=== PATIENT | female | born 1955 | race Caucasian/White ===

== ENCOUNTER → 2023-03-09 13:04 | Outpatient (REF) | payer OTHER, SELFPAY | LOC: DHCBS MAIN 13:04 | PROVIDERS: ATTENDING PHYSICIAN Internal Medicine Cardiovascular Disease; FAMILY PHYSICIAN Internal Medicine | DX: I42.8 Other cardiomyopathies (principal) | CPT/HCPCS: 93306 ==

== ENCOUNTER → 2023-06-12 14:44 | Outpatient (REF) | payer OTHER, SELFPAY | LOC: RAD 14:44 | PROVIDERS: ATTENDING PHYSICIAN Internal Medicine | DX: I50.21 Acute systolic (congestive) heart failure (principal); E11.9 Type 2 diabetes mellitus without complications; M79.605 Pain in left leg | CPT/HCPCS: 93922; 93925 ==

== ENCOUNTER → 2023-08-14 12:17 | Outpatient (REF) | payer OTHER, SELFPAY | LOC: WDC 12:17 | PROVIDERS: ATTENDING PHYSICIAN Obstetrics & Gynecology Gynecology; FAMILY PHYSICIAN Internal Medicine | DX: Z12.31 Encounter for screening mammogram for malignant neoplasm of breast (principal) | CPT/HCPCS: 77063; 77067 ==

== ENCOUNTER → 2024-04-18 07:28 | Outpatient (REF) | payer OTHER, SELFPAY | LOC: DHSLP 07:28 | PROVIDERS: ATTENDING PHYSICIAN Internal Medicine Critical Care Medicine | DX: G47.33 Obstructive sleep apnea (adult) (pediatric) (principal); R09.02 Hypoxemia | CPT/HCPCS: 95806 ==

== ENCOUNTER 2024-07-17 20:22 | Inpatient (IN) | payer OTHER, SELFPAY ==
[2024-07-17 17:48] VITALS: BP 138/97
--- NOTE | 2024-07-17 18:14 | ED.GENMED ---
History of Present Illness
General
Chief Complaint: Rectal Bleeding
Source: patient
Exam Limitations: none
Time Seen by Provider: 07/17/24 18:12
History of Present Illness
History of Present Illness:
69yoF with a history of CHF and obesity presenting for evaluation of rectal bleeding. Patient had a bowel movement yesterday and passed a large amount of blood clots. She has been having bleeding every time she wipes since then. She was seen by
her PCP today and was sent to the ED for evaluation. Patient is otherwise asymptomatic and denies any dizziness, syncope, chest pain, shortness of breath, abdominal pain, rectal pain. She does not take any blood thinners. Last colonoscopy in 2022
showed some polyps and diverticulosis.
Past History
Past History
ED Past Medical History: Psychiatric (Depression)
Social History
Tobacco: Non-smoker
Alcohol: Occasional
Drug: None
Personal: Single
Phy Exam
General Physical Exam
General Presentation: well appearing and no apparent distress
General Skin: warm and dry
General Habitus: normal
General Mental: alert
ENT Exam
ENT Exam: normocephalic
Cardiovascular Exam
Cardiovascular Exam: tachycardia
Pulmonary Exam
Pulmonary Exam: lungs clear, no respiratory distress, no rales, no crackles, no rhonchi and no wheezing
Gastrointestinal Exam
Gastrointestinal Exam: non tender, soft and non distended
Stool: maroon and other (Stool maroon, hemoccult positive)
Neurological Exam
Neurological Exam: alert
[place] Coma Scale
Eye Opening: Spontaneous
Verbal Response: Oriented
Motor Response: Obeys Commands
GCS Total Score: 15
Skin Exam
Skin Exam: normal color and warm/dry
Psychiatric Exam
Psychiatric Exam: normal mood/affect
Sepsis
Sepsis Screening
Sepsis Assessment: Sepsis Ruled Out
Sepsis Screen
Sepsis Screen: Sepsis Ruled Out
Date: 07/17/24
Time: 20:00
Course
Orders/Labs/Results
Orders:
Orders
07/17/24 17:53
Electrocardiogram (*1) Urgent
Reason for Study: Chest Pain
EKG- Treatment ONCE
07/17/24 18:47
Complete Blood Count/With Diff Urgent
Comprehensive Metabolic Panel Urgent
PTT Urgent
Prothrombin Time Urgent
07/17/24 19:50
Admit/Transfer Patient As Directed
Co-Sign Provider:
Level of Care: Inpatient admission
Assign to:: Telemetry
Physician / Group: Geeta
Diagnosis: Rectal bleed
Reason for Telemetry: Other
Other Reason for Telemetry: rectal bleed
Date to Stop Telemetry: 07/19/24
Time to Stop Telemetry: 11:00
Reason for Hospitalization: rectal bleed
Expected length of stay greater than two midnights?: Yes
ELOS- Estimated Length of Stay in days: 2
I certify the patient meets the requirements for IP care: Yes
PRN Pain Medication Management As Directed
May give lesser potent ordered pain med per pt: Yes
preference::
Protocol:: Medication orders for pain may be administered in a
manner that supports deferring to patient preference
when the pt is:
- Requesting an ordered lesser potent pain medication.
Least to most potent pain medications are defined
as: acetaminophen < NSAID < tramadol < opioids
(morphine, oxycodone, hydromorphone).
- Requesting a lesser dose of the same medication IF
ORDERED.
- Requesting a less intrusive route of administration
if both routes are prescribed by the provider (PO <
IV).
07/17/24 19:52
Code Status As Directed
Resuscitation Status: Do not resuscitate
Reached after discussion with pt or family/Healthcare POA: Yes
DNR Bracelet Application ONCE
07/19/24 11:00
DC Protocol for Telemetry ONCE
Abnormal Lab Results
07/17/24
18:47
WBC 13.7 H 10^3/uL
(4.8-10.8)
MCH 31.7 H pg
(27.0-31.0)
Plt Count 446 H 10^3/uL
(130-400)
Abs Immat Gran (auto) 0.3 H 10^3/uL
(0-0.05)
Absolute Neuts (auto) 9.2 H 10^3/uL
(1.4-6.5)
Absolute Monos (auto) 1.1 H 10^3/uL
(0.1-0.6)
Immature Gran % 1.8 H %
(0-0.5)
BUN 23 H mg/dl
(7-17)
Glucose 126 H mg/dl
(70-99)
07/17/24 18:47
07/17/24 18:47
Vital Signs
Initial and Last Documented VS:
Initial Vital Signs
Temp Pulse Resp BP Pulse Ox
98.6 F 127 22 138/97 96
07/17/24 17:48 07/17/24 17:48 07/17/24 17:48 07/17/24 17:48 07/17/24 17:48
Last Documented Vital Signs
Temp Pulse Resp BP Pulse Ox
98.6 F 105 16 138/97 95
07/17/24 17:48 07/17/24 18:45 07/17/24 18:45 07/17/24 17:48 07/17/24 18:45
MDM/Problems Addressed
Differential Diagnosis Includes:
69yoF here with rectal bleeding x 1 day. Denies abd/rectal pain. HR 127 on arrival. BP stable. She is well appearing in no distress. Abdominal exam is benign. Stool is maroon on rectal exam and hemoccult positive. Differential diagnosis includes but
is not limited to: diverticular bleeding, hemorrhoidal bleeding, AVM, malignancy, colitis, anemia
Initial ED plan: Check CBC, CMP, and coags. No indication for imaging given benign exam.
*Pulse Oximetry
Patient hypoxic: no (96%)
*EKG
Interpreted by ED Provider?: Yes
EKG Intrepretation Date: 07/17/24
Heart Rate: 121
Rate: tachycardiac
Rhythm: sinus
[place]: left axis deviation
QRS Pattern: left vent hypertrophy
Ischemia: T-wave inversion (I and AVL, appears similar to last EKG in 2020)
*Critical Care Note
Total Time (30-74mins, 75-104mins- exclusive of procedures): Not Applicable
Update Note
Update Note:
Hemoglobin 13.4 which is within normal limits. Last hemoglobin in the system it was 15.8 in 2020. Heart rate in the 100s range. Patient admitted for further evaluation.
ED Attending Note
-
Portions of this chart may have been created with voice recognition software.� Occasional wrong word or��sound alike� substitutions may have occurred due to the inherent limitations of voice recognition software.
Discharge Plan
Departure
Patient Disposition: Admit
Date of Disposition: 07/17/24
Time of Disposition: 19:21
Presentation/result/management discussed w/ accepting MD/DO: Hospitalist
Discharge Problem:
Rectal bleeding
Prescriptions:
No Action
venlafaxine [Effexor XR] 150 MG capsule,extended release 24hr
150 mg PO DAILY
multivitamin 1 EACH tablet
1 ea PO DAILY
furosemide 40 MG tablet
40 mg PO BID AT 0800,1600 Qty: 180 3RF
aspirin 81 MG tablet,delayed release (DR/EC)
81 mg PO DAILY 0RF
carvedilol 3.125 MG tablet
3.125 mg PO BID Qty: 180 3RF
sacubitril-valsartan [Entresto] 1 TAB tablet
1 tab PO BID Qty: 180 3RF
Referrals:
Ally Ennis MD [Family Provider, Internal Medicine]
Interventions
Interventions:
*Risk Screen - Suicide Last Done: 07/17/24 17:48
*General Assessment Last Done: 07/17/24 17:48
*Neglect/Abuse Screening Last Done: 07/17/24 17:48
XP-Rxsxfv-Ytilybdlwb Assessment Last Done: 07/17/24 18:52
ED- Cardiac Assessment Last Done: 07/17/24 18:52
ED- Pulmonary Assessment Last Done: 07/17/24 18:52
Discharge Date and Time
Print Language: MONGOLIAN
[2024-07-17 18:51] VITALS: BMI 38.0
[2024-07-17 18:54] LABS: % Basophils 0.6 % (0-2); % Eosinophils 0.8 % (0-6); % Immature Granulocytes 1.8 % (0-0.5); % Lymphocytes 21.6 % (20.5-51.1); % Monocytes 8.2 % (1.7-9.3); Absolute Basophils 0.1 10^3/uL (0-0.2); Absolute Eosinophils 0.1 10^3/uL (0-0.7); Absolute Immature Granulocytes 0.3 10^3/uL (0-0.05); Absolute Monocytes 1.1 10^3/uL (0.1-0.6); Absolute Neutrophils 9.2 10^3/uL (1.4-6.5); Hematocrit 38.9 % (37.0-47.0); Hemoglobin 13.4 g/dL (12.0-16.0); Mean Corp Hgb Conc. 34.4 g/dL (33.0-37.0); Mean Corpuscular Hgb 31.7 pg (27.0-31.0); Mean Platelet Volume 9.3 fL (7.4-10.4); Nucleated Red Blood Cells % 0 %; Platelet Count 446 10^3/uL (130-400); Red Blood Cell Count 4.23 10^6/uL (4.20-5.40); Red Cell Dist. Width 13.8 % (11.5-14.5); White Blood Cell Count 13.7 10^3/uL (4.8-10.8)
[2024-07-17 19:04] LABS: INR 1.02; PT 13.9 Sec (11.4-14.6)
[2024-07-17 19:05] LABS: APTT 31.9 Sec (23.4-35.0)
[2024-07-17 19:11] LABS: ALT (SGPT) 21 U/L (0-35); AST (SGOT) 26 U/L (14-36); Albumin 4.4 g/dl (3.5-5.0); Alkaline Phosphatase 101 U/L (38-126); Blood Urea Nitrogen 23 mg/dl (7-17); Calcium 10.1 mg/dl (8.4-10.2); Carbon Dioxide 28 mmol/L (22-30); Chloride 101 mmol/L (98-107); Estimated Creatinine Clearance 59 ml/min; Glucose 126 mg/dl (70-99); Potassium 4.2 mmol/L (3.5-5.1); Sodium 139 mmol/L (135-145); Total Bilirubin 0.5 mg/dl (0.2-1.3); Total Protein 7.8 g/dl (6.3-8.2); eGFR > 60.00
--- NOTE | 2024-07-17 19:37 | HPS.HSE ---
Family Physician
-
Family Physician: Ally Ennis
Chief Complaint
-
rectal bleeding
History of Present Illness
This is a 69-year-old female with past medical history of CHF with preserved EF, obesity, RENETTA, presenting to the emergency department with episode of rectal bleeding.
Patient reported that she started having bloody bowel movement and passing clots 1 day ago. Patient reported that she had 1 episode of bloody bowel movements yesterday morning that had dark blood mixed with clots and some stool. Since then she
has had a bowel movement that was normal. However every time she wipes she notices a streak of bright red blood. She denies any associated pain. She denies recent diarrhea. She reports that she does have intermittent constipation. She takes
aspirin 81 mg daily but denies any oral pain as. She denies frequent NSAID use. She denied feeling dizzy or lightheaded. She denies any fevers or chills. Denies history of GI bleed.
She had a colonoscopy in 2022 which showed diverticulosis and some polyps.
In the Emergency Department she was afebrile, blood pressure was 138/97 2 was tachycardic to 105 and satting 95% on room air. ECG showed sinus tachycardia at rate of 128 otherwise nonischemic.
Hemoglobin 13.4 platelet counts are normal. INR normal. Electrolytes BUN/creatinine were all normal.
Medical History
Past Medical History
Past Medical History: Reports Other
Additional Past Medical History:
Hypertension
CHF with reduced EF
RENETTA
Past Surgical History: Reports Tonsilectomy and Other (LPS-BTL )
Social History
Tobacco: Non-smoker
Alcohol: None
Drug: Former User
Personal: Single
Living: With Family
Family History
Family History: Not pertinent
Allergies / Home Medications
Allergies reflects when Allergies were last updated in [facility].
Home Medications with original date entered in [facility]
Allergy/Medication List:
Allergies
Allergy/AdvReac Type Severity Reaction Status Date / Time
Sulfa (Sulfonamide Allergy Unknown Verified 07/17/24 17:52
Antibiotics)
Home Medications
multivitamin 1 ea PO DAILY Supplement 04/17/20
venlafaxine 150 mg capsule,extended release 24 hr (Effexor XR) 150 mg PO DAILY Depression 04/17/20
aspirin 81 mg tablet,delayed release 81 mg PO DAILY 04/24/20
carvedilol 3.125 mg tablet 3.125 mg PO BID #180 tabs 04/24/20
furosemide 40 mg tablet 40 mg PO BID AT 0800,1600 #180 tabs 04/24/20
sacubitril 24 mg-valsartan 26 mg tablet (Entresto) 1 tab PO BID #180 tabs 04/24/20
Review of Systems
-
Constitutional: Reports No Symptoms
EENT: Reports No Symptoms
Respiratory: Reports No Symptoms
Cardiac: Reports No Symptoms
Abdomen/GI: Reports No Symptoms and Bloody Stools
: Reports No Symptoms
Musculoskeletal: Reports No Symptoms
Skin: Reports No Symptoms
Neurological: Reports No Symptoms
Endocrine: Reports No Symptoms
Hematologic/Lymphatic: Reports No Symptoms
Psych: Reports No Symptoms
Physical Exam
Vital Signs
Vital Signs
Temp Pulse Resp BP Pulse Ox
98.6 F 105 16 138/97 95
07/17/24 17:48 07/17/24 18:45 07/17/24 18:45 07/17/24 17:48 07/17/24 18:45
Physical Exam
General: Well Developed, Well Nourished and No Apparent Distress
HEENT: NormoCephalic, Moist mucous membranes and Atraumatic
Respiratory: Clear
Cardiac: S1/S2 and Regular Rhythm; No Murmur or Rub
GI: Soft, Non Tender, Non Distended and Normal Bowel Sounds; No Organomegaly
Rectal: Deferred by Provider
Musculoskeletal: No Clubbing, No Cyanosis and No Edema
Skin: No Rash
Neuro: Nonfocal/grossly intact
Laboratory Results
-
07/17/24 18:47
07/17/24 18:47
Laboratory Results
PT 13.9 Sec (11.4-14.6) 07/17/24 18:47
INR 1.02 07/17/24:
APTT 31.9 Sec (23.4-35.0) 07/17/24 18:47
Total Bilirubin 0.5 mg/dl (0.2-1.3) 07/17/24:
AST 26 U/L (14-36) 07/17/24:
ALT 21 U/L (0-35) 07/17/24:
Alkaline Phosphatase 101 U/L (38-126) 07/17/24:
Data Reviewed
-
Medical Tests (Nuc Med, Echo, EKG etc): Image Personally Visualized and interpreted
Lab Data: Labs Reviewed by me
Old Records: Reviewed
Impression/Plan
-
IMPRESSION:
69-year-old with 1 day history of rectal bleeding. Had 1 episode of blood bowel movement mixed with clots but none since. However when she wipes she still seeing blood. Examination in the ED revealed internal hemorrhoid. No obvious source of
bleeding noted. She is hemodynamically stable at this time. Hemoglobin is stable.
PLAN:
Lower GI bleed -hemodynamically stable, no acute distress
-Admit to telemetry
-Clear liquid diet for now
-Type and screen, H&H every 8
-Hold intravenous
-Will hold valsartan and Lasix for now
-Continue Coreg
-Hold aspirin
-Antiemetics, no indication for IV fluids at this time
-GI consult in a.m.
DVT prophylaxis with SCDs
CODE STATUS�DNR
[2024-07-17 21:19] VITALS: BP 126/96; BMI 39.5
[2024-07-17 21:58] VITALS: BMI 39.5
[2024-07-17] MEDS: COREG PO (22:11)
--- NOTE | 2024-07-17 22:31 | VATNOTE ---
NOTED ORDER FOR TWO LARGE BORE IVS. PT WITH NORMAL H/H AND NO CURRENT IV THERAPY ORDERED. WILL NOT ESTABLISH A SECOND IV AT THIS TIME.
[2024-07-17 23:40] VITALS: BP 124/81
[2024-07-17 23:41] VITALS: BP 124/81; BP 137/87; BP 143/86; PULSE 100; PULSE 88; PULSE 96
[2024-07-18] VITALS (7 sets, daily range): BP systolic 103–147; BP diastolic 61–80; PULSE 76–103; BMI 39.7
[2024-07-18 02:33] LABS: Hematocrit 35.2 % (37.0-47.0); Hemoglobin 12.3 g/dL (12.0-16.0)
--- NOTE | 2024-07-18 07:24 | CON.GI ---
Addendum entered and electronically signed by Marisol Waller MD 07/18/24 16:51:
I saw and examined the patient.
The [employer]EC[employer]TER [employer] or PA's note was reviewed and I agree with the note.
Comment: 69-year-old female with history of hypertension, obstructive sleep apnea, diverticulosis presenting with complaints of bright blood per rectum starting Sunday, she reports that she is almost 2 months of bright blood on Sunday,
she only saw bright blood when wiping and today again she saw some blood on wiping. No bowel movements since Sunday. Denies any abdominal pain, nausea or vomiting. No heartburn or trouble swallowing. On a regular basis, she has a
bowel movement which is formed except occasional loose stool. Never had GI bleeding like this. No loss of appetite, unintentional weight loss. She does take NSAIDs for joint pains few times a week. No chest pain, shortness of breath, dizziness
or lightheadedness.
Colonoscopy in 2022, diverticulosis noted inflammatory polyp removed from sigmoid colon. Otherwise unremarkable.
On admission, hemoglobin was noted to be 12.3 and now it is 11.9, no significant change.
-Rectal bleeding, likely diverticular. Currently hemodynamically stable.
Agree with monitoring H&H, transfuse if needed.
Would put her back on full liquid diet and if there is no further bleeding, then advance to low residue diet.
If overt active bleeding, consider CT angiogram and if slow bleed, consider colonoscopy.
Will follow-up
Original Note:
Consultation
-
Date/Time Consultation Requested: 07/18/24 0100
Date/Time Consultation Performed: 07/18/24 1020
Requesting Provider: Dk Connor MD
Performing Provider: KIYA Hernández, Marisol Waller MD
Reason for Consultation: rectal bleeding
Medical History
Chief Complaint / HPI
History of Present Illness:
Pt is a 69yo with hx HFpEF, obesity, RENETTA, HTN, depression, pre DM with onset of rectal bleeding passing blood stools with clots. She was seen by PCP and referred to ER. Pt on daily ASA and takes Motrin several times per week but denies other
anticoagulation. No hx GI bleeding in past. Labs on admission with hbg 13.4 with some drop after admission, WBC 13,700, BUN 23 and glucose 126.
In review with patient she admits to regular stools with occasional diarrhea without constipation. She began on Sunday after eating beets for lunch with large amount of dark clots in toilet. Through rest of day and on noted with
red blood in paper but symptoms resolved today. She denies any dizziness, dysphagia, GERD, nausea, vomiting, or abdominal pain with symptoms. No urinary or vaginal bleeding. No prior EGD.
11/2022- colonoscopy Dr. Rhodes to cecum- adequate prep- abd pressure used to complete, 4 mm polyp sigmoid- inflammatory polyp, diminutive polyp TC- HP polyp, diverticulosis
Past Medical History
Past Medical History: CHF, HTN, Psychiatric (depression) and Other (arthritis, pre DM, RENETTA, obesity, colon polyps, diverticulosis )
Past Surgical History: Cardiac (cath), Tonsilectomy and Other (LPS-BTL)
Social History
Tobacco: Non-Smoker
Alcohol: Occasional
Drug: Marijuana
Living: Alone
Employment: Retired
Family History
Family History: Other (mothers aunt wtih colon cA)
Allergies / Home Medications
Allergy/AdvReac Type Severity Reaction Status Date / Time
Sulfa (Sulfonamide Allergy Unknown Verified 07/17/24 17:52
Antibiotics)
�Medication �Instructions �Recorded
multivitamin 1 ea PO DAILY Supplement 04/17/20
venlafaxine 150 mg 150 mg PO DAILY Depression 04/17/20
capsule,extended release 24 hr
(Effexor XR)
aspirin 81 mg tablet,delayed 81 mg PO DAILY 04/24/20
release
carvedilol 6.25 mg tablet (Coreg) 6.25 mg PO BID 07/18/24
cholecalciferol (vitamin D3) 25 25 mcg PO NOON 07/18/24
mcg (1,000 unit) tablet (Vitamin
D3)
flaxseed oil 1,000 mg capsule 1,000 mg PO DAILY 07/18/24
furosemide 20 mg tablet 20 mg PO 1600 07/18/24
furosemide 40 mg tablet 40 mg PO DAILY 07/18/24
valsartan 80 mg tablet 80 mg PO DAILY 07/18/24
venlafaxine 75 mg capsule,extended 75 mg PO DAILY 07/18/24
release 24 hr (Effexor XR)
Review of Systems
-
History Source: Patient
Constitutional: Reports No Symptoms
EENT: Reports No Symptoms
Respiratory: Reports No Symptoms
Cardiac: Reports No Symptoms
Abdomen/GI: Reports Diarrhea and Bloody Stools
: Reports No Symptoms
Musculoskeletal: Reports No Symptoms
Neurological: Reports Dizzy (chronic vertigo no change )
Endocrine: Reports No Symptoms
Hematologic/Lymphatic: Reports Bleeding
Vital Signs
Temp Pulse Resp BP Pulse Ox
98.6 F 92 16 124/76 95
07/18/24 03:41 07/18/24 03:41 07/18/24 03:41 07/18/24 03:41 07/18/24 03:41
Physical Exam
Exam
General: Well Developed, Well Nourished and No Apparent Distress
HEENT: Normocephalic and Anicteric
Respiratory: Clear
Cardiac: Regular Rhythm
GI: Soft, Non Tender and Non Distended
Rectal: Hem Positive, Maroon Stools and Other (no hemorrhoid or masses )
Musculoskeletal: No Clubbing and No Cyanosis
Skin: Warm and Dry
Neuro: Awake and Alert
Psych: Calm
Results
WBC 13.7 10^3/uL (4.8-10.8) H 07/17/24 18:47
Hgb 12.3 g/dL (12.0-16.0) 07/18/24 02:08
Hct 35.2 % (37.0-47.0) L 07/18/24 02:08
MCV 92.0 fL (81.0-99.0) 07/17/24 18:47
Plt Count 446 10^3/uL (130-400) H 07/17/24 18:47
Absolute Neuts (auto) 9.2 10^3/uL (1.4-6.5) H 07/17/24 18:47
PT 13.9 Sec (11.4-14.6) 07/17/24 18:47
INR 1.02 07/17/24 18:47
APTT 31.9 Sec (23.4-35.0) 07/17/24 18:47
Sodium 139 mmol/L (135-145) 07/17/24 18:47
Potassium 4.2 mmol/L (3.5-5.1) 07/17/24 18:47
Chloride 101 mmol/L (98-107) 07/17/24 18:47
Carbon Dioxide 28 mmol/L (22-30) 07/17/24 18:47
BUN 23 mg/dl (7-17) H 07/17/24 18:47
Creatinine 0.8 mg/dL (0.6-1.0) 07/17/24 18:47
Calcium 10.1 mg/dl (8.4-10.2) 07/17/24 18:47
Total Bilirubin 0.5 mg/dl (0.2-1.3) 07/17/24 18:47
AST 26 U/L (14-36) 07/17/24 18:47
ALT 21 U/L (0-35) 07/17/24 18:47
Alkaline Phosphatase 101 U/L (38-126) 07/17/24 18:47
Diagnostic Image Results:
Prior GI Procedures:
EGD: none
Colonoscopy:
11/2022- colonoscopy rhodes to cecum- adequate prep- abd pressure used to complete, 4 mm polyp sigmoid- inflammatory polyp, diminutive polyp TC- HP polyp, diverticulosis bx
Assessment / Plan
-
Pt is a 69yo with hx HFpEF, obesity, RENETTA, HTN, depression, pre DM with onset of rectal bleeding passing blood stools with clots. She was seen by PCP and referred to ER. Pt on daily ASA. Labs on admission with hbg 13.4, WBC 13,700, BUN 23 and
glucose 126. In review with patient she admits to regular stools with occasional diarrhea without constipation. She began on Sunday after eating beets for lunch with large amount of dark clots in toilet. Through rest of day and on
noted with red blood in paper but symptoms resolved today. She denies any dizziness, dysphagia, GERD, nausea, vomiting, or abdominal pain with symptoms. No urinary or vaginal bleeding. No prior EGD.
11/2022- colonoscopy rhodes to cecum- adequate prep- abd pressure used to complete, 4 mm polyp sigmoid- inflammatory polyp, diminutive polyp TC- HP polyp, diverticulosis bx
-Bright red blood per rectum with clots
-mild leukocytosis
-hx diverticulosis
-hx HP and inflammatory polyps
-NSAID use
other med problems:
-HFpEF
-obesity
- RENETTA
-HTN
-depression
-pre DM
PLAN:
etiology of symptoms related to diverticular bleed now resolving vs other--pt was on NSAID so UGI bleed in differential but no hypotension, normal BUN and noted bright red blood in wiping so less likely
trend hbg and stool record
hbg 13.4 with drop to 11.9 after admission
if large volume bloody stools consider CTA
if persistent bleeding consider colonoscopy
current rectal with Maroon formed stool -- likely old blood
will advance diet to low residue
anticipate next stool with have some burgundy stool
ok to continue ASA if needed
monitor next few hours to determine if pt can be discharged today vs need for continued monitoring for bleeding - reviewed with patient if discharged and recurrent bleeding return to ER
-
-
Thank you for consultation and allowing me to participate in the patient's care. Please call the investment professional GI physician during the after hours with any questions or concerns.
[2024-07-18] MEDS: COREG 6.25 MG PO ×2 (08:21→20:16)
[2024-07-18] MEDS: EFFEXOR XR 225 MG PO (08:21)
[2024-07-18] MEDS: FLUSH (NSS) 1 FLUSH IV (08:22)
[2024-07-18 09:57] LABS: Hematocrit 34.2 % (37.0-47.0); Hemoglobin 11.9 g/dL (12.0-16.0)
[2024-07-18 10:07] LABS: INR 1.09; PT 14.4 Sec (11.4-14.6)
[2024-07-18 10:21] LABS: Blood Urea Nitrogen 17 mg/dl (7-17); Calcium 9.3 mg/dl (8.4-10.2); Carbon Dioxide 26 mmol/L (22-30); Chloride 104 mmol/L (98-107); Estimated Creatinine Clearance 69 ml/min; Glucose 187 mg/dl (70-99); Sodium 137 mmol/L (135-145); eGFR > 60.00
--- NOTE | 2024-07-18 12:06 | CM ---
Patient seen bedside, initial assessment completed. Patient is a 69-year-old female with past medical history of CHF with preserved EF, obesity, RENETTA, presenting to the emergency department with episode of rectal bleeding.
Patient resides alone in a ground floor apt, no steps. Independent w/ ambulating and ADLs, no device required. Patient has new CPAP through [employer], has been using it for a month. Tub grab bar in the bathroom. Denies SNF/HC hx.
Address, point of contact and insurance verified
PCP: Ally Ennis
Pharmacy: [facility]. Patient also uses [facility] for mail orders
Plan: Anticipate home, no needs
--- NOTE | 2024-07-18 13:19 | W.PN.HOSP.TC ---
Today's Communication/Plan
-
Diet advanced
Restart ASA tomorrow
If No more bleeding consider discharge tomorrow.
Assessment / Plan
Assessment / Plan
69-year-old with rectal bleeding
CVS: S1-S2 normal
Chest: CTA B/L
Abdomen: Soft, NT / Bowel sounds present
Extremities: No edema
# Lower GI bleed
Possibly diverticular bleed
Clear liquid diet, advanced to LRD
Type and screen and hemoglobin to be followed every 8 hours
GI consultation
Colonoscopy 11/13/2022-polyp in the sigmoid colon, transverse colon. Diverticulosis in the sigmoid colon and descending colon.
# Hypertension-hold valsartan. Continue Coreg
# Chronic HFrEF-improving LV function. In the past was 20%
Echo 03/09/2023-normal LV size, mild concentric LVH. EF 49%. Stage I diastolic dysfunction. Normal RV size and function. Mild to moderate AI.
Nonischemic cardiomyopathy
Continue Coreg
Hold Lasix in the setting of bleeding
# Nonobstructive coronary disease per cardiac cath April 2020- Restart ASA, continue Coreg, Hold Valsartan for now
# Depression-continue Effexor
# Obesity with a BMI of 39
# Chronic bronchitis
# Benign positional vertigo
# Restless leg syndrome
# Ex-smoker
# DVT prophylaxis-SCDs
# DNR status
D/W GI
Part of this note was created using voice recognition system. Occasional wrong word or��sound alike� substitutions may have inadvertently occurred due to the inherent limitations of voice recognition software. If noted kindly bring it to my
attention for correction.
Anticipated Discharge: Within 24 hours
Subjective/Interval History
-
Date of Service: July 18, 2024
Objective Data
-
Labs:
Laboratory Results
07/18/24 07/18/24
02:08 09:41
Hgb 12.3 11.9 L
Hct 35.2 L 34.2 L
PT 14.4
INR 1.09
Sodium 137
Potassium 4.0
Chloride 104
Carbon Dioxide 26
BUN 17
Creatinine 0.7
Glucose 187 H
Calcium 9.3
Vital Signs:
Vital Signs
Temp Pulse Resp BP Pulse Ox
98 F 87 18 117/76 96
07/18/24 11:50 07/18/24 08:21 07/18/24 11:50 07/18/24 08:21 07/18/24 11:50
[2024-07-19 03:27] VITALS: BP 140/75
[2024-07-19] MEDS: TYLENOL 650 MG PO (03:55)
[2024-07-19 05:14] LABS: Hematocrit 35.5 % (37.0-47.0); Hemoglobin 12.1 g/dL (12.0-16.0); Mean Corp Hgb Conc. 34.1 g/dL (33.0-37.0); Mean Corpuscular Hgb 31.3 pg (27.0-31.0); Mean Corpuscular Volume 91.7 fL (81.0-99.0); Mean Platelet Volume 9.2 fL (7.4-10.4); Platelet Count 358 10^3/uL (130-400); Red Blood Cell Count 3.87 10^6/uL (4.20-5.40); Red Cell Dist. Width 13.6 % (11.5-14.5); White Blood Cell Count 11.1 10^3/uL (4.8-10.8)
--- NOTE | 2024-07-19 05:19 | PTCARENOTE ---
Pt had a BM this am. Stool is formed and brown, but there is bright red blood around the stool. Pt has no sx of dizziness, or light headache. Hemoglobin stable=12.1 this am. Will continue to monitor the pt.
[2024-07-19 05:41] LABS: Blood Urea Nitrogen 14 mg/dl (7-17); Calcium 9.7 mg/dl (8.4-10.2); Carbon Dioxide 24 mmol/L (22-30); Chloride 108 mmol/L (98-107); Estimated Creatinine Clearance 80 ml/min; Glucose 129 mg/dl (70-99); Potassium 4.3 mmol/L (3.5-5.1); Sodium 137 mmol/L (135-145); eGFR > 60.00
[2024-07-19 06:00] VITALS: BMI 39.6
[2024-07-19 07:25] VITALS: BP 149/83
[2024-07-19] MEDS: COREG 6.25 MG PO ×2 (09:00→20:29)
[2024-07-19] MEDS: FLUSH (NSS) 1 FLUSH IV (09:01)
[2024-07-19] MEDS: EFFEXOR XR 225 MG PO (09:01)
--- NOTE | 2024-07-19 10:47 | W.PN.GI.CBS2 ---
Today's Communication / Plan
-
etiology of symptoms related to diverticular bleed - could be resolving given Hgb stable but continues to have some maroon stool and Anoscopy showed maroon stool
No evidence of hemorrhoidal bleeding
Still could be resolving diverticular bleed with small amount of maroon stool on anoscopy.
At this time, will advance to low residue diet, if there is no significant bleeding, this is resolving diverticular bleed. She can then be discharged home and monitor bowel movements at home.
If there is significant bleeding, we will keep her on clear liquid diet and plan for colonoscopy.
Patient is aware that if she has ongoing bleed, she needs to let us know even after discharge.
Assessment / Plan
-
Pt is a 69yo with hx HFpEF, obesity, RENETTA, HTN, depression, pre DM with onset of rectal bleeding passing blood stools with clots. She was seen by PCP and referred to ER. Pt on daily ASA. Labs on admission with hbg 13.4, WBC 13,700, BUN 23 and
glucose 126. In review with patient she admits to regular stools with occasional diarrhea without constipation. She began on Sunday after eating beets for lunch with large amount of dark clots in toilet. Through rest of day and on
noted with red blood in paper but symptoms resolved today. She denies any dizziness, dysphagia, GERD, nausea, vomiting, or abdominal pain with symptoms. No urinary or vaginal bleeding. No prior EGD.
11/2022- colonoscopy rhodes to cecum- adequate prep- abd pressure used to complete, 4 mm polyp sigmoid- inflammatory polyp, diminutive polyp TC- HP polyp, diverticulosis bx
-Bright red blood per rectum with clots
-mild leukocytosis
-hx diverticulosis
-hx HP and inflammatory polyps
-NSAID use
other med problems:
-HFpEF
-obesity
- RENETTA
-HTN
-depression
-pre DM
PLAN:
etiology of symptoms related to diverticular bleed - could be resolving given Hgb stable but continues to have some maroon stool and Anoscopy showed maroon stool
No evidence of hemorrhoidal bleeding
Still could be resolving diverticular bleed with small amount of maroon stool on anoscopy.
At this time, will advance to low residue diet, if there is no significant bleeding, this is resolving diverticular bleed. She can then be discharged home and monitor bowel movements at home.
If there is significant bleeding, we will keep her on clear liquid diet and plan for colonoscopy.
Patient is aware that if she has ongoing bleed, she needs to let us know even after discharge.
Subjective
Subjective
Date of Service: July 19, 2024
Pt reports having small dark maroon stool last night, no abdominal pain, nausea, vomiting
Objective
Data Reviewed
Laboratory Data:
Laboratory Results
07/19/24 05:00
07/19/24 05:00
Laboratory Results
PT 14.4 Sec (11.4-14.6) 07/18/24 09:41
INR 1.09 07/18/24 09:41
APTT 31.9 Sec (23.4-35.0) 07/17/24 18:47
Total Bilirubin 0.5 mg/dl (0.2-1.3) 07/17/24 18:47
AST 26 U/L (14-36) 07/17/24 18:47
ALT 21 U/L (0-35) 07/17/24 18:47
Alkaline Phosphatase 101 U/L (38-126) 07/17/24 18:47
Vital Signs and I&O:
Vital Signs
Temp Pulse Resp BP Pulse Ox
97.8 F 79 16 149/83 97
07/19/24 07:25 07/19/24 09:00 07/19/24 07:25 07/19/24 09:00 07/19/24 07:25
I&O
07/18/24 07/19/24 07/20/24
06:59 06:59 06:59
Intake Total 600 / 600
Balance 600 / 600
Physical Exam
Physical Exam
GI: Soft, Non Distended and Non Tender
Rectal: Red (maroon stool)
[2024-07-19] MEDS: ASPIR LOW (ENTERIC COATED) 81 MG PO (11:02)
--- NOTE | 2024-07-19 11:03 | PTCARENOTE ---
Dr. Christin haddad with pt taking Aspirin 81mg this am.
[2024-07-19 11:12] VITALS: BP 127/66
--- NOTE | 2024-07-19 14:46 | W.PN.HOSP.TC ---
Today's Communication/Plan
-
DC planning
Assessment / Plan
Assessment / Plan
69-year-old with rectal bleeding
# Lower GI bleed
Possibly diverticular bleed
diet advanced to LRD today
Hemodynamically stable and H&H stable
Colonoscopy 11/13/2022-polyp in the sigmoid colon, transverse colon. Diverticulosis in the sigmoid colon and descending colon.
Await BM and if no further blood we will discharge patient home. Appreciate GI input.
# Hypertension-hold valsartan-resume on discharge. Continue Coreg
# Chronic HFrEF-improving LV function. In the past was 20%
Echo 03/09/2023-normal LV size, mild concentric LVH. EF 49%. Stage I diastolic dysfunction. Normal RV size and function. Mild to moderate AI.
Nonischemic cardiomyopathy
Continue Coreg
Hold Lasix in the setting of bleeding-will resume if no further bleeding on discharge
# Nonobstructive coronary disease per cardiac cath April 2020- Restart ASA, continue Coreg, Hold Valsartan for now
# Depression-continue Effexor
# Obesity with a BMI of 39
# Chronic bronchitis
# Benign positional vertigo
# Restless leg syndrome
# Ex-smoker
# DVT prophylaxis-SCDs
# DNR status
DC home if no further bleeding.
Part of this note was created using voice recognition system. Occasional wrong word or��sound alike� substitutions may have inadvertently occurred due to the inherent limitations of voice recognition software. If noted kindly bring it to my
attention for correction.
Anticipated Discharge: Today
Subjective/Interval History
-
Date of Service: July 19, 2024
No BM today. Put on a low residue diet by GI
No nausea vomiting. Tolerating diet. Denies any abdominal pain.
No shortness of breath
Objective Data
-
Labs:
Laboratory Results
07/19/24
05:00
WBC 11.1 H
Hgb 12.1
Hct 35.5 L
Plt Count 358
Sodium 137
Potassium 4.3
Chloride 108 H
Carbon Dioxide 24
BUN 14
Creatinine 0.6
Glucose 129 H
Calcium 9.7
Vital Signs:
Vital Signs
Temp Pulse Resp BP Pulse Ox
98.1 F 72 18 127/66 98
07/19/24 11:12 07/19/24 11:12 07/19/24 11:12 07/19/24 11:12 07/19/24 11:12
I&O
07/18/24 07/19/24 07/20/24
06:59 06:59 06:59
Intake Total 600 / 600
Balance 600 / 600
Physical Exam
-
General: No Apparent Distress
Respiratory: Non Labored Respirations; Negative Accessory Resp Muscle Use
Cardiac: Regular Rhythm and S1/S2
GI: Soft and Nontender
Neuro: AO x 3
Data Reviewed
-
Labs: Labs Reviewed by me
[2024-07-19 15:05] VITALS: BP 127/67
--- NOTE | 2024-07-19 18:45 | PTCARENOTE ---
Pt had a moderate, formed, brown BM this evening with small amount of blood surrounding stool in toilet. Did not note blood of stool. No N/V, tolerated low residue diet.
[2024-07-19 23:22] VITALS: BP 110/72
[2024-07-20 01:30] VITALS: PULSE 80
[2024-07-20] MEDS: TYLENOL 650 MG PO (03:36)
[2024-07-20 05:30] VITALS: BMI 39.8
[2024-07-20 08:50] VITALS: BP 128/80
--- NOTE | 2024-07-20 09:49 | W.PN.GI.CBS2 ---
Today's Communication / Plan
-
PLAN:
etiology of symptoms related to diverticular bleed - resolving given Hgb stable but continues to have some maroon stool and Anoscopy showed maroon stool
No evidence of hemorrhoidal bleeding
Tolerating low residue diet
Given pt has been having small amt of stool, will give a dose of miralax-she is expected to have dark old blood with BM but should clear eventually.
As long as H/H stable and BM continues to clear, OK for OP f/u but if bleeding recurs, will need colonoscopy.
Patient is aware that if she has ongoing bleed, she needs to let us know even after discharge.
Assessment / Plan
-
Pt is a 69yo with hx HFpEF, obesity, RENETTA, HTN, depression, pre DM with onset of rectal bleeding passing blood stools with clots. She was seen by PCP and referred to ER. Pt on daily ASA. Labs on admission with hbg 13.4, WBC 13,700, BUN 23 and
glucose 126. In review with patient she admits to regular stools with occasional diarrhea without constipation. She began on Sunday after eating beets for lunch with large amount of dark clots in toilet. Through rest of day and on
noted with red blood in paper but symptoms resolved today. She denies any dizziness, dysphagia, GERD, nausea, vomiting, or abdominal pain with symptoms. No urinary or vaginal bleeding. No prior EGD.
11/2022- colonoscopy rhodes to cecum- adequate prep- abd pressure used to complete, 4 mm polyp sigmoid- inflammatory polyp, diminutive polyp TC- HP polyp, diverticulosis bx
-Bright red blood per rectum with clots
-mild leukocytosis
-hx diverticulosis
-hx HP and inflammatory polyps
-NSAID use
other med problems:
-HFpEF
-obesity
- RENETTA
-HTN
-depression
-pre DM
PLAN:
etiology of symptoms related to diverticular bleed - resolving given Hgb stable but continues to have some maroon stool and Anoscopy showed maroon stool
No evidence of hemorrhoidal bleeding
Tolerating low residue diet
Given pt has been having small amt of stool, will give a dose of miralax-she is expected to have dark old blood with BM but should clear eventually.
As long as H/H stable and BM continues to clear, OK for OP f/u but if bleeding recurs, will need colonoscopy.
Patient is aware that if she has ongoing bleed, she needs to let us know even after discharge.
Subjective
Subjective
Date of Service: July 20, 2024
Patient reports having 1 small bowel movement with dark blood overnight. No abdominal pain, nausea or vomiting. Tolerating low residue diet. Otherwise feels well.
Objective
Data Reviewed
Laboratory Data:
Laboratory Results
07/19/24 05:00
07/19/24 05:00
Laboratory Results
PT 14.4 Sec (11.4-14.6) 07/18/24 09:41
INR 1.09 07/18/24 09:41
APTT 31.9 Sec (23.4-35.0) 07/17/24 18:47
Total Bilirubin 0.5 mg/dl (0.2-1.3) 07/17/24 18:47
AST 26 U/L (14-36) 07/17/24 18:47
ALT 21 U/L (0-35) 07/17/24 18:47
Alkaline Phosphatase 101 U/L (38-126) 07/17/24 18:47
Vital Signs and I&O:
Vital Signs
Temp Pulse Resp BP Pulse Ox
97.5 F 92 18 128/80 98
07/20/24 08:50 07/20/24 08:50 07/20/24 08:50 07/20/24 08:50 07/20/24 08:50
I&O
07/19/24 07/20/24 07/21/24
06:59 06:59 06:59
Intake Total 600 / 600 720 / 720
Balance 600 / 600 720 / 720
Physical Exam
Physical Exam
GI: Soft, Non Distended and Non Tender
[2024-07-20] MEDS: MIRALAX 17 GRAMS PO (09:58)
[2024-07-20] MEDS: ASPIR LOW (ENTERIC COATED) 81 MG PO (10:00)
[2024-07-20] MEDS: EFFEXOR XR 225 MG PO (10:00)
[2024-07-20] MEDS: FLUSH (NSS) 1 FLUSH IV (10:00)
[2024-07-20] MEDS: COREG 6.25 MG PO (10:00)
--- NOTE | 2024-07-20 14:11 | W.DCSUMMARY ---
Discharge Summary
Discharge Data
Date of Admission: 07/17/24
Date of Discharge: 07/20/24
-
Pending Results: No
Hospital Course
Primary diagnosis:
Rectal bleeding suspected diverticular
Secondary diagnosis:
Essential hypertension
Chronic heart failure with reduced EF
Nonobstructive coronary artery disease
Depression
Obesity
Restless leg syndrome
Hospital course:
Patient with history of diverticulosis presents with a bright red blood per rectum starting Sunday. She had no nausea vomiting or abdominal pain. She was hemodynamically stable. H&H remained stable in the hospital. She had a colonoscopy in
2022 which showed sigmoid polyp, transverse colon polyp, diverticulosis. Her hemoglobin was stable it was 12.1 at the time of discharge. She was seen by GI who felt may be diverticular in nature and recommended close follow-up. She was initiated
on diet and she was tolerating a low residue diet. She was told she could have some residual bleeding for the next to 3 days but if she has more bright red blood per rectum or clots or dizziness to come back to ER.
On the day of discharge patient had no specific complaints. Denies any nausea vomiting or abdominal pain. She had no BM today but had small brown blood-tinged formed stool yesterday. She was without any dizziness and is ambulating fine without
symptoms. Afebrile. Blood pressure 128/80. Abdomen was soft.
She was deemed stable from GI and medicine standpoint for discharge home today.
Consultants on board:
Neurology-Marisol Moreno
Discharge Plan
-
Patient Disposition: Home (Routine Discharge)
Discharge Diagnosis/Procedures: Lower GI bleed suspected diverticular
Diet: Low Residue
Additional Diets: low residue diet for a week
Activity: As tolerated
Driving Restrictions: As prior to admission
Bathing Restrictions: None
Referrals:
Ally Ennis MD [Family Provider, Internal Medicine] - in less than 1 week
Prescriptions:
Continued
venlafaxine [Effexor XR] 150 MG capsule,extended release 24hr
150 mg PO DAILY
multivitamin 1 EACH tablet
1 ea PO DAILY
aspirin 81 MG tablet,delayed release (DR/EC)
81 mg PO DAILY 0RF
carvedilol [Coreg] 6.25 mg Tablet
6.25 mg PO BID
venlafaxine [Effexor XR] 75 mg Capsule,Extended Release 24hr
75 mg PO DAILY
valsartan 80 mg Tablet
80 mg PO DAILY
flaxseed oil 1,000 mg Capsule
1,000 mg PO DAILY
cholecalciferol (vitamin D3) [Vitamin D3] 25 mcg (1,000 unit) Tablet
25 mcg PO NOON
furosemide 40 mg Tablet
40 mg PO DAILY
furosemide 20 mg Tablet
20 mg PO 1600
Discharge Orders:
Discharge Patient (As Directed); Ordered 07/20/24
Ordered By: Pawel Cunha
Discharge Date and Time
Print Language: SERBIAN
--- NOTE | 2024-07-20 15:21 | PTCARENOTE ---
Pt had one small BM that was brown but slightly blood tinged, dark blood per pt, RN did not see prior to pt flushing. Pt reports that blood is definitely less than what it was.
[2024-07-20 15:32] VITALS: BP 133/73
== END 2024-07-20 16:17 | disposition home or self-care (01) | DRG 378 ==
LOC: 4 EAST ACU 20:22
PROVIDERS: Hospitalist; Physician Assistant; ADMITTING PHYSICIAN Internal Medicine; ATTENDING PHYSICIAN Internal Medicine; CONSULT PHYSICIAN Internal Medicine Gastroenterology; EMERGENCY PHYSICIAN Emergency Medicine; FAMILY PHYSICIAN Internal Medicine
DX: K57.31 Diverticulosis of large intestine without perforation or abscess with bleeding (principal); I50.42 Chronic combined systolic (congestive) and diastolic (congestive) heart failure; K92.1 Melena; Z66 Do not resuscitate; I11.0 Hypertensive heart disease with heart failure; F32.A Depression, unspecified; E66.9 Obesity, unspecified; Z68.39 Body mass index [BMI] 39.0-39.9, adult; G25.81 Restless legs syndrome; Z86.0100 Personal history of colon polyps, unspecified; K62.5 Hemorrhage of anus and rectum
CPT/HCPCS: 80048; 80053; 85014; 85018; 85025; 85027; 85610; 85730; 86850; 86900; 86901; 93005; 94660; 99285

== ENCOUNTER → 2024-08-15 12:52 | Outpatient (REF) | payer OTHER, SELFPAY | LOC: WDC 12:52 | PROVIDERS: ATTENDING PHYSICIAN Internal Medicine | DX: Z12.31 Encounter for screening mammogram for malignant neoplasm of breast (principal) | CPT/HCPCS: 77063; 77067 ==

== ENCOUNTER → 2024-08-20 12:39 | Outpatient (REF) | payer OTHER, SELFPAY | LOC: RAD 12:39 | PROVIDERS: ATTENDING PHYSICIAN Internal Medicine | DX: M81.0 Age-related osteoporosis without current pathological fracture (principal); Z78.0 Asymptomatic menopausal state | CPT/HCPCS: 77080 ==